=== PATIENT | female | born 1955 | race Caucasian/White ===

== ENCOUNTER 2018-01-17 17:39 | Inpatient (IN) | payer MEDICAID, OTHER ==
[~2018-01-17] VITALS: Ht 167.6 cm; Wt 115.0 kg
[2018-01-17] MEDS ORDERED: SODIUM CHLORIDE FLUSH 10ML SYR IVF ONE (18:00)
[2018-01-17] MEDS ORDERED: MORPHINE SULFATE 4 MG/ML, 1ML ONE ×2 (18:53→19:39)
[2018-01-17] MEDS: MORPHINE SULFATE 4 MG/ML, 1ML IVPush PRN ×2 (19:00→19:42)
[2018-01-17] MEDS ORDERED: MORPHINE SULFATE 4 MG/ML, 1ML IVPush PRN (20:30)
[2018-01-17] MEDS ORDERED: ALPR-475 PO (20:31)
[2018-01-17 20:48] LABS: ALBUMIN 3.1 g/dL (3.4-5.0); ANION GAP 8 mmol/L (5-15); CALCIUM 8.1 mg/dL (8.5-10.1); CHLORIDE 112 mmol/L (98-107); CREATININE 0.59 mg/dL (0.55-1.02)
[2018-01-17 20:55] LABS: MD YES; MEAN CORPUSCULAR HEMOGLOBIN 30.5 pg (27.0-34.8); MEAN CORPUSCULAR HGB CONC 33.8 g/dL (32.4-35.8); MEAN CORPUSCULAR VOLUME 90.3 fL (80-100); MEAN PLATELET VOLUME 8.4 fL (7.4-10.4); PLATELET COUNT 75 x10^3/uL (130-400); RED BLOOD COUNT 4.86 x10^6/uL (3.82-5.3)
[2018-01-17 20:59] LABS: BAND#(MANUAL) 0.04 x10^3/uL; BANDS%(MANUAL) 1 % (0-7); BASOS#(MANUAL) 0.04 x10^3/uL (0-0.1); BASOS% (MANUAL) 1 % (0-1); EOS#(MANUAL) 0.04 x10^3/uL (0.0-0.4); EOS% (MANUAL) 1 % (1-7); LYMPH#(MANUAL) 0.46 x10^3/uL (1-3.4); LYMPHS% (MANUAL) 12 % (22-44); MONOS#(MANUAL) 0.15 x10^3/uL (0.3-2.7); MONOS% (MANUAL) 4 % (2-9); SEG#(MANUAL) 3.08 x10^3/uL (1.8-6.8); SEGS% (MANUAL) 81 % (42-75)
[2018-01-17] MEDS ORDERED: DOCUSATE 100 MG CAPSULE PO PRN (21:00)
[2018-01-17] MEDS ORDERED: ONDANSETRON 2MG/ML, 2ML IVPush PRN (21:00)
[2018-01-17 21:02] LABS: <PLATELET ESTIMATE> DECREASED; <PLT MORPHOLOGY> NORMAL PLT MORPH; ANISOCYTOSIS 1+
[2018-01-17] MEDS: OXYcodone IR 5MG TABLET PO PRN (22:38)
[2018-01-17] MEDS: SODIUM CHLORIDE FLUSH 10ML SYR IVF SCH (22:39)
[2018-01-18] MEDS: morphine SULFATE 10 MG/ML, 1ML IVPush PRN ×2 (00:25→10:49)
[2018-01-18] MEDS: OXYcodone IR 5MG TABLET PO PRN ×3 (03:18→15:49)
[2018-01-18 03:21] VITALS: BP 173/92
[2018-01-18 06:43] VITALS: BP 156/78
[2018-01-18] MEDS: SENNA/DOCUSATE TABLET PO SCH (07:31)
[2018-01-18] MEDS: SODIUM CHLORIDE FLUSH 10ML SYR IVF SCH ×2 (08:49→21:00)
[2018-01-18] MEDS ORDERED: DIPHENHYDRAMINE 25 MG CAPSULE ONE (10:48)
[2018-01-18] MEDS: DIPHENHYDRAMINE 25 MG CAPSULE PO PRN (10:49)
[2018-01-18 14:03] VITALS: BP 145/81
[2018-01-18 19:20] VITALS: BP 158/79
[2018-01-19] MEDS: OXYcodone IR 5MG TABLET PO PRN ×5 (00:33→23:47)
[2018-01-19 00:46] VITALS: BP 168/82
[2018-01-19] MEDS: DIPHENHYDRAMINE 25 MG CAPSULE PO PRN (06:59)
[2018-01-19 07:40] VITALS: BP 151/86
[2018-01-19] MEDS: SENNA/DOCUSATE TABLET PO SCH (09:55)
[2018-01-19] MEDS: SODIUM CHLORIDE FLUSH 10ML SYR IVF SCH ×2 (09:57→21:00)
[2018-01-19 14:37] VITALS: BP 154/75
[2018-01-19 19:11] VITALS: BP 145/79
[2018-01-20] MEDS: DIPHENHYDRAMINE 25 MG CAPSULE PO PRN (00:47)
[2018-01-20] MEDS: ACETAMINOPHEN 325 MG TABLET PO PRN ×6 (00:47→21:25)
[2018-01-20 02:14] VITALS: BP 159/76
[2018-01-20] MEDS: OXYcodone IR 5MG TABLET PO PRN ×5 (04:13→21:25)
[2018-01-20] MEDS: SENNA/DOCUSATE TABLET PO SCH (08:58)
[2018-01-20] MEDS: POLYETHYLENE GLYCOL 17 GM PACKET PO PRN (08:58)
[2018-01-20] MEDS: SODIUM CHLORIDE FLUSH 10ML SYR IVF SCH ×2 (08:58→09:00)
[2018-01-20 12:56] VITALS: BP 152/81
[2018-01-20 18:33] VITALS: BP 122/78
[2018-01-21 01:16] VITALS: BP 148/79
[2018-01-21] MEDS: ACETAMINOPHEN 325 MG TABLET PO PRN ×5 (02:36→19:43)
[2018-01-21] MEDS: OXYcodone IR 5MG TABLET PO PRN ×5 (02:36→19:43)
[2018-01-21 08:00] VITALS: BP 146/77
[2018-01-21 08:21] LABS: MEAN CORPUSCULAR HEMOGLOBIN 30.8 pg (27.0-34.8); MEAN CORPUSCULAR HGB CONC 33.8 g/dL (32.4-35.8); MEAN CORPUSCULAR VOLUME 91.1 fL (80-100); MEAN PLATELET VOLUME 8.3 fL (7.4-10.4); PLATELET COUNT 93 x10^3/uL (130-400); RED BLOOD COUNT 4.08 x10^6/uL (3.82-5.3); RED CELL DISTRIBUTION WIDTH 14.3 % (9.6-15.2)
[2018-01-21 08:26] LABS: INTERNATIONAL NORMALIZED RATIO 1.1 (0.93-1.1); PROTHROMBIN TIME 11.4 Seconds (9.6-11.5)
[2018-01-21 08:30] LABS: ALANINE AMINOTRANSFERASE 114 U/L (12-78); ALBUMIN 2.7 g/dL (3.4-5.0); ANION GAP 5 mmol/L (5-15); CALCIUM 8.3 mg/dL (8.5-10.1); CHLORIDE 107 mmol/L (98-107); CREATININE 0.59 mg/dL (0.55-1.02)
[2018-01-21 08:32] LABS: ALKALINE PHOSPHATASE 82 U/L (45-117); BILIRUBIN,TOTAL 3.2 mg/dL (0.2-1.0); TOTAL PROTEIN 5.8 g/dL (6.4-8.2)
[2018-01-21 08:44] LABS: BASOPHILS % (AUTO) 0 % (0-1); EOSINOPHILS # (AUTO) 0.08 x10^3/uL (0-0.4); EOSINOPHILS % (AUTO) 3 % (1-7); LYMPHOCYTES # (AUTO) 0.53 x10^3/uL (1-3.4); LYMPHOCYTES % (AUTO) 18 % (22-44); MD SCAN; MONOCYTES # (AUTO) 0.37 x10^3/uL (0.2-0.8); MONOCYTES % (AUTO) 13 % (2-9); NEUTROPHILS # (AUTO) 1.93 x10^3/uL (1.8-6.8); NEUTROPHILS % (AUTO) 66 % (42-75)
[2018-01-21] MEDS: SENNA/DOCUSATE TABLET PO SCH (09:45)
[2018-01-21] MEDS: DIPHENHYDRAMINE 25 MG CAPSULE PO PRN (11:22)
[2018-01-21 13:05] VITALS: BP 137/81
[2018-01-21] MEDS: POLYETHYLENE GLYCOL 17 GM PACKET PO PRN (17:45)
[2018-01-21 19:20] VITALS: BP 161/79
[2018-01-22] MEDS: ACETAMINOPHEN 325 MG TABLET PO PRN ×3 (00:20→09:08)
[2018-01-22] MEDS: OXYcodone IR 5MG TABLET PO PRN ×3 (00:20→09:08)
[2018-01-22 00:50] VITALS: BP 163/79
[2018-01-22 08:04] VITALS: BP 142/75
[2018-01-22] MEDS: SENNA/DOCUSATE TABLET PO SCH (08:42)
[2018-01-22] MEDS ORDERED: MIDAZOLAM 1 MG/ML, 2ML ONE (10:21)
[2018-01-22] MEDS ORDERED: EPINEPHRINE 1 MG/ML, 1ML ONE (10:21)
[2018-01-22] MEDS ORDERED: LIDOCAINE 1%, 50ML ONE (10:21)
[2018-01-22] MEDS ORDERED: FENTANYL PF 100 MCG/2ML ONE (10:21)
[2018-01-22] MEDS ORDERED: BACITRACIN OINT 500U/GM, 15 GM ONE (10:21)
[2018-01-22] MEDS ORDERED: SCOPOLAMINE PATCH, 1.5MG PATCH.TD72 TD ONE ×2 (10:58→11:00)
[2018-01-22] MEDS ORDERED: LIDOCAINE 1%-EPI 1:100K, 50ML IM ONE (12:31)
[2018-01-22] MEDS ORDERED: LABETALOL 5MG/ML, 20ML IV PRN (13:30)
[2018-01-22] MEDS ORDERED: MEPERIDINE/PF 25MG/0.5ML IVPush PRN (13:30)
[2018-01-22] MEDS ORDERED: hydrALAzine 20 MG/ML, 1ML IV PRN (13:30)
[2018-01-22] MEDS ORDERED: LORazepam 2 MG/ML, 1ML IVPush PRN (13:30)
[2018-01-22] MEDS ORDERED: PROMETHAZINE 12.5 MG SUPP PR PRN (13:30)
[2018-01-22] MEDS ORDERED: FENTANYL PF 100 MCG/2ML IV PRN (13:30)
[2018-01-22] MEDS ORDERED: PROMETHAZINE 25 MG/ML, 1ML IV PRN (13:30)
[2018-01-22] MEDS ORDERED: HYDROmorphone 1 MG/ML, 1ML IV PRN (13:30)
[2018-01-22] MEDS ORDERED: HYDROcodone/APAP 7.5-325MG/15ML UDC PO PRN (13:30)
[2018-01-22] MEDS ORDERED: ALBUTEROL SULFATE 2.5 MG/3 ML NPPB PRN (13:30)
[2018-01-22] MEDS ORDERED: ACETAMINOPHEN 325 MG TABLET PO PRN (13:30)
[2018-01-22] MEDS ORDERED: OXYcodone 5 MG/5 ML ORAL.SOL UDC PO PRN (13:30)
[2018-01-22 15:35] VITALS: BP 145/80
[2018-01-22] MEDS ORDERED: SUCCINYLCHOLINE 20 MG/ML, 10ML ONE (15:38)
[2018-01-22] MEDS ORDERED: DEXAMETHASONE 4 MG/ML, 1ML ONE (15:38)
[2018-01-22] MEDS ORDERED: PHENYLEPHRINE 10 MG/ML ONE (15:38)
[2018-01-22] MEDS ORDERED: ONDANSETRON 2MG/ML, 2ML ONE (15:38)
[2018-01-22] MEDS ORDERED: ROCURONIUM 10 MG/ML,10ML ONE (15:38)
[2018-01-22] MEDS ORDERED: PROPOFOL 10 MG/ML, 20ML ONE (15:38)
[2018-01-22] MEDS ORDERED: CEFAZOLIN 1,000 MG ONE (15:38)
[2018-01-22] MEDS ORDERED: SENNA/DOCUSATE TABLET PO PRN (16:00)
[2018-01-22] MEDS ORDERED: BISACODYL 10 MG SUPP PR PRN (16:00)
[2018-01-22] MEDS ORDERED: MAGNESIUM HYDROXIDE 8%, 30ML UDC PO PRN (16:00)
[2018-01-22] MEDS ORDERED: morphine SULFATE 10 MG/ML, 1ML IV PRN (16:00)
[2018-01-22] MEDS ORDERED: ALUMINUM/MAG/SIMETHICONE 30 ML UDC PO PRN (16:00)
[2018-01-22] MEDS ORDERED: ONDANSETRON 2MG/ML, 2ML IV PRN (16:00)
[2018-01-22] MEDS: POTASSIUM CHLORIDE 20 MEQ in SODIUM CHLORIDE 0.9% 1,000 ML IV SCH (16:56)
[2018-01-22] MEDS: ACETAMINOPHEN 325 MG TABLET PO SCH ×2 (16:57→22:00)
[2018-01-22 19:45] VITALS: BP 148/81
[2018-01-22] MEDS ORDERED: CEFAZOLIN PMX 2GM/100ML 100 ML IVPB SCH (19:45)
[2018-01-22] MEDS: CEFAZOLIN PMX 2GM/50ML 50 ML IVPB SCH (19:46)
[2018-01-22] MEDS: DOCUSATE 100 MG CAPSULE PO SCH (19:47)
[2018-01-22] MEDS: HYDROcodone/APAP 7.5-325MG/15ML UDC PO PRN (19:47)
[2018-01-22] MEDS: HEPARIN 5,000 UNITS/ML, 1ML SQ SCH (20:30)
[2018-01-22] MEDS ORDERED: ZOLPIDEM 5MG TABLET PO PRN (21:00)
[2018-01-23] VITALS: BP 121/71
[2018-01-23] MEDS: POTASSIUM CHLORIDE 20 MEQ in SODIUM CHLORIDE 0.9% 1,000 ML IV SCH ×4 (00:05→21:52)
[2018-01-23] MEDS: HYDROcodone/APAP 7.5-325MG/15ML UDC PO PRN ×3 (00:12→08:18)
[2018-01-23] MEDS: CEFAZOLIN PMX 2GM/50ML 50 ML IVPB SCH (03:36)
[2018-01-23] MEDS: ACETAMINOPHEN 325 MG TABLET PO SCH ×4 (03:36→21:52)
[2018-01-23] MEDS: HEPARIN 5,000 UNITS/ML, 1ML SQ SCH ×3 (04:20→20:52)
[2018-01-23 04:30] VITALS: BP 145/75
[2018-01-23] MEDS: OXYcodone 5 MG/5 ML ORAL.SOL UDC PO PRN ×6 (05:46→23:24)
[2018-01-23 07:49] VITALS: BP 164/81
[2018-01-23] MEDS: MULTIVITAMINS/MINERALS TABLET PO SCH (08:17)
[2018-01-23] MEDS: DOCUSATE 100 MG CAPSULE PO SCH ×2 (08:18→20:52)
[2018-01-23] MEDS: SENNA/DOCUSATE TABLET PO SCH (08:18)
[2018-01-23 11:10] LABS: MEAN CORPUSCULAR HEMOGLOBIN 30.6 pg (27.0-34.8); MEAN CORPUSCULAR HGB CONC 33.4 g/dL (32.4-35.8); MEAN CORPUSCULAR VOLUME 91.7 fL (80-100); MEAN PLATELET VOLUME 7.7 fL (7.4-10.4); PLATELET COUNT 169 x10^3/uL (130-400); RED BLOOD COUNT 3.97 x10^6/uL (3.82-5.3); RED CELL DISTRIBUTION WIDTH 14.9 % (9.6-15.2)
[2018-01-23 11:20] LABS: ANION GAP 8 mmol/L (5-15); CALCIUM 7.8 mg/dL (8.5-10.1); CHLORIDE 105 mmol/L (98-107); CREATININE 0.59 mg/dL (0.55-1.02)
[2018-01-23 11:38] LABS: BASOPHILS # (AUTO) 0.03 x10^3/uL (0-0.1); BASOPHILS % (AUTO) 1 % (0-1); EOSINOPHILS # (AUTO) 0.01 x10^3/uL (0-0.4); EOSINOPHILS % (AUTO) 0 % (1-7); LYMPHOCYTES # (AUTO) 0.82 x10^3/uL (1-3.4); LYMPHOCYTES % (AUTO) 12 % (22-44); MD SCAN; MONOCYTES # (AUTO) 0.68 x10^3/uL (0.2-0.8); MONOCYTES % (AUTO) 10 % (2-9); NEUTROPHILS # (AUTO) 5.09 x10^3/uL (1.8-6.8); NEUTROPHILS % (AUTO) 77 % (42-75)
[2018-01-23 13:29] VITALS: BP 149/83
[2018-01-23 19:28] VITALS: BP 119/83
[2018-01-24 02:35] VITALS: BP 151/78
[2018-01-24 02:44] VITALS: BP 138/82
[2018-01-24] MEDS: OXYcodone 5 MG/5 ML ORAL.SOL UDC PO PRN ×5 (03:21→20:08)
[2018-01-24] MEDS: ACETAMINOPHEN 325 MG TABLET PO SCH ×4 (03:58→22:22)
[2018-01-24] MEDS: HEPARIN 5,000 UNITS/ML, 1ML SQ SCH ×3 (03:58→20:08)
[2018-01-24] MEDS: POTASSIUM CHLORIDE 20 MEQ in SODIUM CHLORIDE 0.9% 1,000 ML IV SCH ×2 (07:52→16:02)
[2018-01-24] MEDS: MULTIVITAMINS/MINERALS TABLET PO SCH (07:52)
[2018-01-24] MEDS: DOCUSATE 100 MG CAPSULE PO SCH ×2 (07:53→20:08)
[2018-01-24] MEDS: SENNA/DOCUSATE TABLET PO SCH (07:53)
[2018-01-24 08:21] VITALS: BP 163/101
[2018-01-24 13:03] VITALS: BP 146/73
[2018-01-24 20:03] VITALS: BP 136/88
[2018-01-24] MEDS: POLYETHYLENE GLYCOL 17 GM PACKET PO PRN (22:22)
[2018-01-25] MEDS: OXYcodone 5 MG/5 ML ORAL.SOL UDC PO PRN ×6 (00:31→20:37)
[2018-01-25] MEDS: POTASSIUM CHLORIDE 20 MEQ in SODIUM CHLORIDE 0.9% 1,000 ML IV SCH ×3 (00:35→16:04)
[2018-01-25 02:00] VITALS: BP 136/89
[2018-01-25] MEDS: ACETAMINOPHEN 325 MG TABLET PO SCH ×3 (05:22→17:55)
[2018-01-25] MEDS: HEPARIN 5,000 UNITS/ML, 1ML SQ SCH ×3 (05:22→20:38)
[2018-01-25 07:30] VITALS: BP 138/70
[2018-01-25] MEDS: SENNA/DOCUSATE TABLET PO SCH (08:35)
[2018-01-25] MEDS: MULTIVITAMINS/MINERALS TABLET PO SCH (08:35)
[2018-01-25] MEDS: DOCUSATE 100 MG CAPSULE PO SCH ×2 (08:35→20:38)
[2018-01-25 15:52] VITALS: BP 130/69
[2018-01-25 20:06] VITALS: BP 143/69
[2018-01-26] MEDS: ACETAMINOPHEN 325 MG TABLET PO SCH ×4 (00:41→17:35)
[2018-01-26] MEDS: OXYcodone 5 MG/5 ML ORAL.SOL UDC PO PRN ×6 (00:41→21:48)
[2018-01-26] MEDS: POTASSIUM CHLORIDE 20 MEQ in SODIUM CHLORIDE 0.9% 1,000 ML IV SCH ×3 (00:41→13:16)
[2018-01-26 01:09] VITALS: BP 145/73
[2018-01-26] MEDS: HEPARIN 5,000 UNITS/ML, 1ML SQ SCH ×2 (05:29→13:39)
[2018-01-26 07:55] VITALS: BP 145/75
[2018-01-26] MEDS: DOCUSATE 100 MG CAPSULE PO SCH ×2 (09:33→21:48)
[2018-01-26] MEDS: SENNA/DOCUSATE TABLET PO SCH (09:33)
[2018-01-26] MEDS: MULTIVITAMINS/MINERALS TABLET PO SCH (09:33)
[2018-01-26 13:26] VITALS: BP 155/79
[2018-01-26 18:49] LABS: MEAN CORPUSCULAR HEMOGLOBIN 31.7 pg (27.0-34.8); MEAN CORPUSCULAR HGB CONC 34.4 g/dL (32.4-35.8); MEAN CORPUSCULAR VOLUME 92.2 fL (80-100); MEAN PLATELET VOLUME 7.6 fL (7.4-10.4); PLATELET COUNT 144 x10^3/uL (130-400); RED BLOOD COUNT 3.64 x10^6/uL (3.82-5.3); RED CELL DISTRIBUTION WIDTH 15.3 % (9.6-15.2)
[2018-01-26 19:20] LABS: BASOPHILS # (AUTO) 0.02 x10^3/uL (0-0.1); BASOPHILS % (AUTO) 1 % (0-1); EOSINOPHILS % (AUTO) 3 % (1-7); LYMPHOCYTES # (AUTO) 0.86 x10^3/uL (1-3.4); LYMPHOCYTES % (AUTO) 24 % (22-44); MD SCAN; MONOCYTES # (AUTO) 0.53 x10^3/uL (0.2-0.8); MONOCYTES % (AUTO) 15 % (2-9); NEUTROPHILS # (AUTO) 2.02 x10^3/uL (1.8-6.8); NEUTROPHILS % (AUTO) 57 % (42-75)
[2018-01-26 21:10] VITALS: BP 146/80
[2018-01-27] MEDS: POTASSIUM CHLORIDE 20 MEQ in SODIUM CHLORIDE 0.9% 1,000 ML IV SCH (00:33)
[2018-01-27] MEDS: ACETAMINOPHEN 325 MG TABLET PO SCH ×4 (00:33→18:02)
[2018-01-27 01:56] VITALS: BP 143/83
[2018-01-27] MEDS: OXYcodone 5 MG/5 ML ORAL.SOL UDC PO PRN ×6 (02:01→22:15)
[2018-01-27 05:53] LABS: ALBUMIN 2.6 g/dL (3.4-5.0); ANION GAP 6 mmol/L (5-15); CHLORIDE 104 mmol/L (98-107)
[2018-01-27 05:57] LABS: ALANINE AMINOTRANSFERASE 84 U/L (12-78); ALKALINE PHOSPHATASE 97 U/L (45-117); BASOPHILS # (AUTO) 0.02 x10^3/uL (0-0.1); BASOPHILS % (AUTO) 1 % (0-1); BILIRUBIN,TOTAL 1.8 mg/dL (0.2-1.0); CALCIUM 8.2 mg/dL (8.5-10.1); CREATININE 0.58 mg/dL (0.55-1.02); EOSINOPHILS # (AUTO) 0.08 x10^3/uL (0-0.4); EOSINOPHILS % (AUTO) 3 % (1-7); LYMPHOCYTES # (AUTO) 0.74 x10^3/uL (1-3.4); LYMPHOCYTES % (AUTO) 25 % (22-44); MD NO; MEAN CORPUSCULAR HEMOGLOBIN 31.3 pg (27.0-34.8); MEAN CORPUSCULAR HGB CONC 34.1 g/dL (32.4-35.8); MEAN CORPUSCULAR VOLUME 91.9 fL (80-100); MEAN PLATELET VOLUME 7.9 fL (7.4-10.4); MONOCYTES # (AUTO) 0.42 x10^3/uL (0.2-0.8); MONOCYTES % (AUTO) 14 % (2-9); NEUTROPHILS # (AUTO) 1.74 x10^3/uL (1.8-6.8); NEUTROPHILS % (AUTO) 58 % (42-75); PLATELET COUNT 135 x10^3/uL (130-400); RED BLOOD COUNT 3.66 x10^6/uL (3.82-5.3); RED CELL DISTRIBUTION WIDTH 15.1 % (9.6-15.2); TOTAL PROTEIN 5.6 g/dL (6.4-8.2)
[2018-01-27 07:49] VITALS: BP 151/84
[2018-01-27] MEDS: SENNA/DOCUSATE TABLET PO SCH (10:23)
[2018-01-27] MEDS: DOCUSATE 100 MG CAPSULE PO SCH ×2 (10:23→20:00)
[2018-01-27] MEDS: MULTIVITAMINS/MINERALS TABLET PO SCH (10:23)
[2018-01-27] MEDS: ONDANSETRON ODT 4 MG PO PRN ×2 (11:53→17:28)
[2018-01-27 13:27] VITALS: BP 138/72
[2018-01-27 20:45] VITALS: BP 145/64
[2018-01-28] MEDS: ACETAMINOPHEN 325 MG TABLET PO SCH ×4 (00:32→17:56)
[2018-01-28 01:02] VITALS: BP 132/76
[2018-01-28] MEDS: OXYcodone 5 MG/5 ML ORAL.SOL UDC PO PRN ×5 (03:23→19:59)
[2018-01-28 05:17] LABS: BASOPHILS # (AUTO) 0.02 x10^3/uL (0-0.1); BASOPHILS % (AUTO) 1 % (0-1); EOSINOPHILS # (AUTO) 0.11 x10^3/uL (0-0.4); EOSINOPHILS % (AUTO) 3 % (1-7); LYMPHOCYTES # (AUTO) 0.91 x10^3/uL (1-3.4); LYMPHOCYTES % (AUTO) 27 % (22-44); MD NO; MEAN CORPUSCULAR HGB CONC 34.4 g/dL (32.4-35.8); MEAN CORPUSCULAR VOLUME 93.1 fL (80-100); MEAN PLATELET VOLUME 7.6 fL (7.4-10.4); MONOCYTES # (AUTO) 0.44 x10^3/uL (0.2-0.8); MONOCYTES % (AUTO) 13 % (2-9); NEUTROPHILS # (AUTO) 1.91 x10^3/uL (1.8-6.8); NEUTROPHILS % (AUTO) 57 % (42-75); PLATELET COUNT 145 x10^3/uL (130-400)
[2018-01-28 05:27] LABS: CHLORIDE 106 mmol/L (98-107)
[2018-01-28 05:44] LABS: ALANINE AMINOTRANSFERASE 76 U/L (12-78); ALBUMIN 2.5 g/dL (3.4-5.0); ALKALINE PHOSPHATASE 88 U/L (45-117); ANION GAP 5 mmol/L (5-15); BILIRUBIN,TOTAL 1.8 mg/dL (0.2-1.0); CALCIUM 7.8 mg/dL (8.5-10.1); FREE T4 (FREE THYROXINE) 1.35 ng/dL (0.76-1.46); THYROID STIMULATING HORMONE 0.119 mIU/L (0.358-3.740); TOTAL PROTEIN 5.5 g/dL (6.4-8.2)
[2018-01-28 06:50] VITALS: BP 155/78
[2018-01-28] MEDS: DOCUSATE 100 MG CAPSULE PO SCH ×2 (08:53→19:59)
[2018-01-28] MEDS: MULTIVITAMINS/MINERALS TABLET PO SCH (08:53)
[2018-01-28] MEDS: SENNA/DOCUSATE TABLET PO SCH (08:53)
[2018-01-28 13:32] VITALS: BP 131/69
[2018-01-28] MEDS ORDERED: HEPARIN 5,000 UNITS/ML, 1ML SQ SCH (16:00)
[2018-01-28 19:54] VITALS: BP 130/78
[2018-01-29] MEDS: ACETAMINOPHEN 325 MG TABLET PO SCH ×4 (00:25→18:16)
[2018-01-29] MEDS: OXYcodone 5 MG/5 ML ORAL.SOL UDC PO PRN ×5 (00:25→22:16)
[2018-01-29 04:19] VITALS: BP 142/67
[2018-01-29 07:21] VITALS: BP 146/74
[2018-01-29] MEDS: MULTIVITAMINS/MINERALS TABLET PO SCH (08:08)
[2018-01-29] MEDS: DOCUSATE 100 MG CAPSULE PO SCH ×2 (08:08→20:53)
[2018-01-29] MEDS: SENNA/DOCUSATE TABLET PO SCH (08:09)
[2018-01-29] MEDS ORDERED: OXYcodone 5 MG/5 ML ORAL.SOL UDC PO PRN ×2 (09:00)
[2018-01-29] MEDS ORDERED: DIPHENHYDRAMINE 25 MG CAPSULE PO PRN (09:00)
[2018-01-29 14:24] VITALS: BP 120/73
[2018-01-29] MEDS: IBUPROFEN 200 MG TABLET PO PRN (17:22)
[2018-01-29 20:22] VITALS: BP 119/68
[2018-01-30] MEDS: ACETAMINOPHEN 325 MG TABLET PO SCH ×3 (00:29→12:17)
[2018-01-30 02:14] VITALS: BP 159/95
[2018-01-30] MEDS: OXYcodone 5 MG/5 ML ORAL.SOL UDC PO PRN ×3 (02:19→16:19)
[2018-01-30] MEDS: IBUPROFEN 200 MG TABLET PO PRN ×2 (02:19→09:23)
[2018-01-30 06:26] VITALS: BP 157/87
[2018-01-30] MEDS: SENNA/DOCUSATE TABLET PO SCH (09:23)
[2018-01-30] MEDS: DOCUSATE 100 MG CAPSULE PO SCH (09:23)
[2018-01-30] MEDS: MULTIVITAMINS/MINERALS TABLET PO SCH (09:23)
[2018-01-30] MEDS ORDERED: MULT-484 PO (13:17)
[2018-01-30] MEDS ORDERED: DOCU-131 PO (13:17)
[2018-01-30] MEDS ORDERED: IBUP-1484 PO (13:17)
[2018-01-30] MEDS ORDERED: ACET325T14 PO (13:17)
[2018-01-30 13:56] VITALS: BP 161/82
[2018-01-30] MEDS ORDERED: OXYC5SOL8 PO (15:44)
[2018-01-30 16:31] VITALS: BP 157/83
== END 2018-01-30 16:50 | disposition home or self-care (01) | DRG 483 ==
LOC: ED 19:19 → SUATTDRO 20:46 → EDIP 20:53 → 4NOR 21:45
PROVIDERS: ADMIT Family Medicine; ATTEND Family Medicine
PROC: 0PSG04Z Reposition Left Humeral Shaft with Internal Fixation Device, Open Approach (ICD-10-PCS; 2018-01-22)
PROC: 0RRK00Z Replacement of Left Shoulder Joint with Reverse Ball and Socket Synthetic Substitute, Open Approach (ICD-10-PCS; principal; 2018-01-22 16:30)
DX: S42.302A Unspecified fracture of shaft of humerus, left arm, initial encounter for closed fracture (principal); E43 Unspecified severe protein-calorie malnutrition; D69.6 Thrombocytopenia, unspecified; S42.201A Unspecified fracture of upper end of right humerus, initial encounter for closed fracture; S42.292A Other displaced fracture of upper end of left humerus, initial encounter for closed fracture; W01.0XXA Fall on same level from slipping, tripping and stumbling without subsequent striking against object, initial encounter; Y93.89 Activity, other specified; Y92.89 Other specified places as the place of occurrence of the external cause; Y99.8 Other external cause status; E66.9 Obesity, unspecified; I10 Essential (primary) hypertension; K59.00 Constipation, unspecified; S00.81XA Abrasion of other part of head, initial encounter; S00.83XA Contusion of other part of head, initial encounter; Z82.49 Family history of ischemic heart disease and other diseases of the circulatory system; Z87.891 Personal history of nicotine dependence; Z85.3 Personal history of malignant neoplasm of breast; Z88.6 Allergy status to analgesic agent
CPT/HCPCS: 29125; 36415; 80048; 80053; 82040; 83735; 84155; 84439; 84443; 85025; 85610; 85730; 93005; 96374; 96376; C1713; C1776; J0171; J0690; J1100; J1644; J2250; J2405; J2704; J3010; J3480; J3490; Q0162; J0330; J2270; J2370; J7030; Q0163